=== PATIENT | female | born 1940 | race Caucasian/White ===

== ENCOUNTER 2016-11-03 14:08 | Inpatient (IN) | payer OTHER ==
[~2016-11-03] VITALS: Ht 160 cm; Wt 81.6 kg
[2016-11-03 14:11] VITALS: BP 110/70
[2016-11-03] MEDS ORDERED: DEXT 5% / NACL 0.9% 500 ML IV ONE (14:30)
[2016-11-03 14:54] LABS: BASOPHILS # (AUTO) 0.1 K/uL (0.00-0.22); BASOPHILS % (AUTO) 1.1 % (0.0-2.0); EOSINOPHILS # (AUTO) 0.2 K/uL (0-0.4); EOSINOPHILS % (AUTO) 2.6 % (0.0-4.0); HEMATOCRIT 31.4 % (36-48); HEMOGLOBIN 10.2 g/dL (12.0-16.0); LYMPHOCYTES % (AUTO) 10.8 % (20.5-51.1); MEAN CORPUSCULAR HEMOGLOBIN 31 pg (27-31); MEAN CORPUSCULAR HGB CONC 33 g/dL (33-37); MEAN CORPUSCULAR VOLUME 95 fL (80-94); MONOCYTES # (AUTO) 0.4 K/uL (0.8-1.0); MONOCYTES % (AUTO) 3.8 % (1.7-9.3); NEUTROPHILS # (AUTO) 7.8 K/uL (1.8-7.7); NEUTROPHILS % (AUTO) 81.7 % (42.2-75.2); PLATELET COUNT (AUTO) 302 K/uL (140-450); RED CELL DISTRIBUTION WIDTH 13.7 % (11.6-13.7); WHITE BLOOD COUNT (AUTO) 9.5 K/uL (4.8-10.8)
[2016-11-03 15:10] LABS: ALANINE AMINOTRANSFERASE 16 U/L (14-59); ALBUMIN 3.3 g/dL (3.4-5.0); ALKALINE PHOSPHATASE 80 U/L (46-116); ANION GAP 15.9 (8-16); ASPARTATE AMINOTRANSFERASE 26 U/L (15-37); CALCIUM 8.2 mg/dL (8.5-10.1); CARBON DIOXIDE 20.2 mmol/L (21-32); CHLORIDE 103 mmol/L (98-107); CREATINE KINASE, TOTAL 321 U/L (26-192); CREATININE 1.2 mg/dL (0.6-1.3); GLUCOSE 56 mg/dL (74-106); POTASSIUM 5.1 mmol/L (3.5-5.1); SODIUM SERUM 134 mmol/L (136-145); TOTAL BILIRUBIN 0.3 mg/dL (0.0-1.0); UREA NITROGEN, BLOOD 19 mg/dL (7-18)
[2016-11-03 15:29] LABS: CKMB RELATIVE INDEX 0.8 (0.0-2.5); CREATINE KINASE MB 2.5 ng/mL (0-3.6)
[2016-11-03] MEDS ORDERED: DEXTROSE 50% 50 ML SYR IVP ONE (15:45)
[2016-11-03] MEDS ORDERED: NACL 0.9% 1,000 ML IV SCH (15:56)
[2016-11-03] MEDS ORDERED: ACETAMINOPHEN 325 MG TAB PO PRN (16:00)
[2016-11-03] MEDS ORDERED: ONDANSETRON 4 MG/2 ML VIAL IM/IVP PRN (16:00)
[2016-11-03] MEDS ORDERED: HYDROcodone/APAP 7.5/325 MG 1 TAB PO PRN (16:00)
[2016-11-03] MEDS ORDERED: DOCUSATE SODIUM 100 MG GELCAP PO PRN (16:00)
[2016-11-03] MEDS ORDERED: MECLIZINE 25 MG TAB PO PRN (16:05)
[2016-11-03] MEDS ORDERED: METF1000 PO (16:39)
[2016-11-03] MEDS ORDERED: PRAV40TA1 PO (16:39)
[2016-11-03] MEDS ORDERED: VENL37.55 PO (16:39)
[2016-11-03] MEDS ORDERED: [UNRECOGNIZED DRUG - CODE] PO (16:39)
[2016-11-03] MEDS ORDERED: MIC5 PO (16:39)
[2016-11-03] MEDS ORDERED: OMEP20TC10 PO (16:39)
[2016-11-03] MEDS ORDERED: INSU100S22 SUBQ (16:39)
[2016-11-03 16:57] LABS: INR 1.1 (0.8-1.2); PARTIAL THROMBOPLASTIN TIME 28.5 secs (22-35.6); PROTHROMBIN TIME 10.8 secs (10.8-13.4)
[2016-11-03] MEDS ORDERED: NITROGLYCERIN 0.4 MG TAB SL PRN (17:10)
[2016-11-03 17:13] LABS: CHOL/HDL RATIO 1.5 (1-4.5); FREE T4 (FREE THYROXINE) 0.68 ng/dL (0.76-1.46); MAGNESIUM 1.3 mg/dL (1.8-2.4); PHOSPHORUS 3.3 mg/dL (2.5-4.9); THYROID STIMULATING HORMONE 1.59 uIU/mL (0.34-3.74)
[2016-11-03 18:02] VITALS: BP 151/76
[2016-11-03] MEDS ORDERED: DEXTROSE 50% 50 ML SYR IVP PRN (18:15)
[2016-11-03] MEDS ORDERED: MAG SULF 2000 MG/WATER PREMIX 50 ML IV ONE (18:15)
[2016-11-03 19:07] LABS: APPEARANCE,URINE CLEAR (CLEAR); BILIRUBIN,URINE NEGATIVE (NEGATIVE); BLOOD, URINE TRACE-L (NEGATIVE); COLOR,URINE YELLOW (YELLOW); LEUKOCYTE ESTERASE ,URINE NEGATIVE (NEGATIVE); NITRITE, URINE NEGATIVE (NEGATIVE); PH,URINE 5.5 (5.0-9.0); PROTEIN,URINE NEGATIVE (NEGATIVE); UGLUCOSE TRACE (NEGATIVE); UROBILINOGEN,URINE 0.2 EU/dL (0.2 - 1)
[2016-11-03 19:10] LABS: BACTERIA,URINE RARE /HPF (None Seen); RBC,URINE 0-3 /HPF (0-5); SQUAMOUS EPITHELIAL CELL,UR 0-3 /LPF (0-3 (FEW)); WBC,URINE 0-3 /HPF (0-5)
[2016-11-03 20:00] VITALS: BP 144/84
[2016-11-03] MEDS: ASPIRIN 81 MG TAB.CHEW PO SCH (20:18)
[2016-11-03] MEDS: ATORVASTATIN 20 MG TAB PO SCH (20:18)
[2016-11-03] MEDS: BLOOD GLUCOSE MONITORING 1 DEV DEV FS SCH (20:19)
[2016-11-03] MEDS: MORPHINE SULFATE 2 MG/ML SYR IVP PRN ×2 (20:19→23:33)
[2016-11-03] MEDS ORDERED: ASPIRIN 81 MG TAB.CHEW ONE (20:24)
[2016-11-03] MEDS ORDERED: INSULIN DETEMIR 100 UNITS/ML 10 ML VIAL SUBQ SCH (21:00)
[2016-11-03] MEDS ORDERED: ATORVASTATIN 20 MG TAB PO SCH (21:00)
[2016-11-04] VITALS: BP 136/79
[2016-11-04] MEDS ORDERED: ZOLPIDEM 5 MG TAB PO SCH ×2 (02:55→21:00)
[2016-11-04 04:00] VITALS: BP 123/87
[2016-11-04 06:05] LABS: BASOPHILS # (AUTO) 0.1 K/uL (0.00-0.22); BASOPHILS % (AUTO) 1.4 % (0.0-2.0); EOSINOPHILS # (AUTO) 0.1 K/uL (0-0.4); EOSINOPHILS % (AUTO) 1.6 % (0.0-4.0); HEMATOCRIT 32.8 % (36-48); HEMOGLOBIN 10.9 g/dL (12.0-16.0); LYMPHOCYTES # (AUTO) 2.3 K/uL (2.5-16.5); LYMPHOCYTES % (AUTO) 25.1 % (20.5-51.1); MEAN CORPUSCULAR HEMOGLOBIN 32 pg (27-31); MEAN CORPUSCULAR HGB CONC 33 g/dL (33-37); MEAN CORPUSCULAR VOLUME 96 fL (80-94); MONOCYTES # (AUTO) 0.5 K/uL (0.8-1.0); MONOCYTES % (AUTO) 5.8 % (1.7-9.3); NEUTROPHILS % (AUTO) 66.1 % (42.2-75.2); PLATELET COUNT (AUTO) 346 K/uL (140-450); RED BLOOD CELL COUNT(AUTO) 3.43 MIL/uL (4.20-5.40); RED CELL DISTRIBUTION WIDTH 13.2 % (11.6-13.7)
[2016-11-04 06:25] LABS: ANION GAP 11.7 (8-16); CALCIUM 8.5 mg/dL (8.5-10.1); CARBON DIOXIDE 23.8 mmol/L (21-32); CHLORIDE 103 mmol/L (98-107); CREATININE 0.9 mg/dL (0.6-1.3); GLUCOSE 98 mg/dL (74-106); POTASSIUM 4.5 mmol/L (3.5-5.1); SODIUM SERUM 134 mmol/L (136-145); UREA NITROGEN, BLOOD 9 mg/dL (7-18)
[2016-11-04] MEDS: BLOOD GLUCOSE MONITORING 1 DEV DEV FS SCH ×4 (06:33→20:33)
[2016-11-04 06:34] LABS: MAGNESIUM 1.8 mg/dL (1.8-2.4)
[2016-11-04 08:00] VITALS: BP 143/70
[2016-11-04] MEDS ORDERED: glyBURIDE 5 MG TAB PO SCH (09:00)
[2016-11-04] MEDS ORDERED: LOSARTAN 50 MG TAB PO SCH (09:00)
[2016-11-04] MEDS: DEXT 5% /NACL 0.9% 1,000 ML IV SCH ×2 (09:00→16:25)
[2016-11-04] MEDS: metFORMIN 500 MG TAB PO SCH (09:13)
[2016-11-04] MEDS: METOPROLOL SUCCINATE 50 MG TABER PO SCH (09:13)
[2016-11-04] MEDS: ASPIRIN 81 MG TAB.CHEW PO SCH (09:14)
[2016-11-04] MEDS: amLODIPine 5 MG TAB PO SCH (09:14)
[2016-11-04] MEDS: LOSARTAN 50 MG TAB PO SCH (09:14)
[2016-11-04] MEDS: PANTOPRAZOLE 40 MG TABEC PO SCH (09:14)
[2016-11-04] MEDS ORDERED: VENL37.55 PO (09:46)
[2016-11-04] MEDS ORDERED: DEXTROSE 50% 50 ML SYR IVP PRN (10:40)
[2016-11-04 12:00] VITALS: BP 139/65
[2016-11-04 16:00] VITALS: BP 133/71
[2016-11-04] MEDS: INSULIN LISPRO SLIDING SCALE 100 UNITS/ML VIAL SUBQ PRN (17:18)
[2016-11-04 20:00] VITALS: BP 139/63
[2016-11-04] MEDS: ATORVASTATIN 20 MG TAB PO SCH (20:32)
[2016-11-04] MEDS: MORPHINE SULFATE 2 MG/ML SYR IVP PRN (20:33)
[2016-11-04] MEDS: NYSTATIN/TRIAMCINOLONE CRM 15 GM TUBE TP SCH (20:34)
[2016-11-04] MEDS ORDERED: LORazepam 2 MG/ML VIAL IM/IVP PRN (22:35)
[2016-11-05] VITALS: BP 137/77
[2016-11-05] MEDS ORDERED: HALOPERIDOL IM 5 MG/ML VIAL IM SCH (01:50)
[2016-11-05] MEDS: DEXT 5% /NACL 0.9% 1,000 ML IV SCH (02:25)
[2016-11-05 04:00] VITALS: BP 123/65
[2016-11-05 06:40] LABS: T4 (THYROXINE) 4.3 ug/dL (4.5-12.0)
[2016-11-05] MEDS: BLOOD GLUCOSE MONITORING 1 DEV DEV FS SCH ×4 (06:43→21:20)
[2016-11-05] MEDS: INSULIN LISPRO SLIDING SCALE 100 UNITS/ML VIAL SUBQ PRN ×2 (06:45→18:47)
[2016-11-05 07:35] LABS: BASOPHILS # (AUTO) 0.1 K/uL (0.00-0.22); BASOPHILS % (AUTO) 1.2 % (0.0-2.0); EOSINOPHILS # (AUTO) 0.2 K/uL (0-0.4); EOSINOPHILS % (AUTO) 1.7 % (0.0-4.0); HEMATOCRIT 32.3 % (36-48); HEMOGLOBIN 10.7 g/dL (12.0-16.0); LYMPHOCYTES # (AUTO) 1.4 K/uL (2.5-16.5); LYMPHOCYTES % (AUTO) 12.2 % (20.5-51.1); MEAN CORPUSCULAR HEMOGLOBIN 32 pg (27-31); MEAN CORPUSCULAR HGB CONC 33 g/dL (33-37); MEAN CORPUSCULAR VOLUME 95 fL (80-94); MONOCYTES # (AUTO) 0.6 K/uL (0.8-1.0); MONOCYTES % (AUTO) 4.9 % (1.7-9.3); NEUTROPHILS # (AUTO) 9.4 K/uL (1.8-7.7); PLATELET COUNT (AUTO) 320 K/uL (140-450); RED BLOOD CELL COUNT(AUTO) 3.39 MIL/uL (4.20-5.40); RED CELL DISTRIBUTION WIDTH 13.8 % (11.6-13.7); WHITE BLOOD COUNT (AUTO) 11.7 K/uL (4.8-10.8)
[2016-11-05 07:49] LABS: CALCIUM 8.5 mg/dL (8.5-10.1); CARBON DIOXIDE 22.8 mmol/L (21-32); CHLORIDE 102 mmol/L (98-107); GLUCOSE 240 mg/dL (74-106); POTASSIUM 4.8 mmol/L (3.5-5.1); SODIUM SERUM 134 mmol/L (136-145); UREA NITROGEN, BLOOD 10 mg/dL (7-18)
[2016-11-05 08:00] VITALS: BP 133/76
[2016-11-05] MEDS: PANTOPRAZOLE 40 MG TABEC PO SCH (08:13)
[2016-11-05] MEDS: metFORMIN 500 MG TAB PO SCH (08:13)
[2016-11-05] MEDS: METOPROLOL SUCCINATE 50 MG TABER PO SCH (08:14)
[2016-11-05] MEDS: LOSARTAN 50 MG TAB PO SCH (08:14)
[2016-11-05] MEDS: amLODIPine 5 MG TAB PO SCH (08:14)
[2016-11-05] MEDS: ASPIRIN 81 MG TAB.CHEW PO SCH (08:14)
[2016-11-05] MEDS ORDERED: VENL37.55 PO (08:20)
[2016-11-05] MEDS: NYSTATIN/TRIAMCINOLONE CRM 15 GM TUBE TP SCH ×2 (09:00→21:25)
[2016-11-05] MEDS ORDERED: TEMAZEPAM 15 MG CAP PO PRN (09:20)
[2016-11-05 09:45] LABS: HEMOGLOBIN A1C 6.8 % (4.8-5.6)
[2016-11-05] MEDS ORDERED: VENLAFAXINE 37.5 MG TAB PO SCH (10:00)
[2016-11-05 12:00] VITALS: BP 142/65
[2016-11-05 13:09] LABS: FOLIC ACID 5.4 ng/mL (>3.0)
[2016-11-05 16:00] VITALS: BP 131/61
[2016-11-05] MEDS ORDERED: QUET200T PO (17:50)
[2016-11-05 20:00] VITALS: BP 134/77
[2016-11-05] MEDS ORDERED: QUEtiapine FUMARATE 100 MG TAB PO SCH (21:00)
[2016-11-05] MEDS: ATORVASTATIN 20 MG TAB PO SCH (21:23)
[2016-11-06] VITALS: BP 115/78
[2016-11-06 04:00] VITALS: BP 134/79
[2016-11-06 06:33] LABS: BASOPHILS # (AUTO) 0.2 K/uL (0.00-0.22); BASOPHILS % (AUTO) 1.6 % (0.0-2.0); EOSINOPHILS # (AUTO) 0.2 K/uL (0-0.4); EOSINOPHILS % (AUTO) 1.6 % (0.0-4.0); HEMATOCRIT 31.8 % (36-48); HEMOGLOBIN 10.5 g/dL (12.0-16.0); LYMPHOCYTES # (AUTO) 2.4 K/uL (2.5-16.5); LYMPHOCYTES % (AUTO) 21.6 % (20.5-51.1); MEAN CORPUSCULAR HEMOGLOBIN 31 pg (27-31); MEAN CORPUSCULAR HGB CONC 33 g/dL (33-37); MEAN CORPUSCULAR VOLUME 95 fL (80-94); MONOCYTES # (AUTO) 0.7 K/uL (0.8-1.0); MONOCYTES % (AUTO) 6.4 % (1.7-9.3); NEUTROPHILS # (AUTO) 7.4 K/uL (1.8-7.7); NEUTROPHILS % (AUTO) 68.8 % (42.2-75.2); PLATELET COUNT (AUTO) 308 K/uL (140-450); RED BLOOD CELL COUNT(AUTO) 3.35 MIL/uL (4.20-5.40); RED CELL DISTRIBUTION WIDTH 13.6 % (11.6-13.7); WHITE BLOOD COUNT (AUTO) 10.9 K/uL (4.8-10.8)
[2016-11-06] MEDS ORDERED: QUET400T PO (06:36)
[2016-11-06] MEDS: BLOOD GLUCOSE MONITORING 1 DEV DEV FS SCH ×2 (06:40→12:04)
[2016-11-06 06:50] LABS: CALCIUM 8.7 mg/dL (8.5-10.1); CARBON DIOXIDE 23.5 mmol/L (21-32); CHLORIDE 102 mmol/L (98-107); GLUCOSE 186 mg/dL (74-106); POTASSIUM 4.5 mmol/L (3.5-5.1); SODIUM SERUM 135 mmol/L (136-145); UREA NITROGEN, BLOOD 10 mg/dL (7-18)
[2016-11-06] MEDS: INSULIN LISPRO SLIDING SCALE 100 UNITS/ML VIAL SUBQ PRN (06:51)
[2016-11-06 08:00] VITALS: BP 157/75
[2016-11-06] MEDS: PANTOPRAZOLE 40 MG TABEC PO SCH (08:21)
[2016-11-06] MEDS: LOSARTAN 50 MG TAB PO SCH (08:21)
[2016-11-06] MEDS: metFORMIN 500 MG TAB PO SCH (08:22)
[2016-11-06] MEDS: amLODIPine 5 MG TAB PO SCH (08:22)
[2016-11-06] MEDS: METOPROLOL SUCCINATE 50 MG TABER PO SCH (08:22)
[2016-11-06] MEDS: ASPIRIN 81 MG TAB.CHEW PO SCH (08:22)
[2016-11-06] MEDS: NYSTATIN/TRIAMCINOLONE CRM 15 GM TUBE TP SCH (08:23)
[2016-11-06] MEDS ORDERED: VENLAFAXINE 37.5 MG TAB PO SCH (09:00)
[2016-11-06] MEDS ORDERED: PIOGLITAZONE 30 MG TAB PO SCH (09:00)
[2016-11-06 12:00] VITALS: BP 145/82
[2016-11-06] MEDS ORDERED: QUEtiapine FUMARATE 100 MG TAB PO SCH (21:00)
== END 2016-11-06 13:00 | disposition home health service (06) | DRG 637 ==
LOC: MED 14:08 → MTU 16:00
PROVIDERS: ADMIT Family Medicine; ATTEND Hospitalist
DX: E11.649 Type 2 diabetes mellitus with hypoglycemia without coma (principal); G93.41 Metabolic encephalopathy; D68.59 Other primary thrombophilia; E87.1 Hypo-osmolality and hyponatremia; E44.0 Moderate protein-calorie malnutrition; F33.9 Major depressive disorder, recurrent, unspecified; R55 Syncope and collapse; G90.9 Disorder of the autonomic nervous system, unspecified; I44.1 Atrioventricular block, second degree; W18.30XA Fall on same level, unspecified, initial encounter; E11.65 Type 2 diabetes mellitus with hyperglycemia; I10 Essential (primary) hypertension; F17.210 Nicotine dependence, cigarettes, uncomplicated; F03.90 Unspecified dementia, unspecified severity, without behavioral disturbance, psychotic disturbance, mood disturbance, and anxiety; D53.9 Nutritional anemia, unspecified; E66.9 Obesity, unspecified; S00.81XA Abrasion of other part of head, initial encounter; I25.10 Atherosclerotic heart disease of native coronary artery without angina pectoris; E83.42 Hypomagnesemia; Z88.6 Allergy status to analgesic agent; Z79.84 Long term (current) use of oral hypoglycemic drugs; Z79.4 Long term (current) use of insulin; Z79.899 Other long term (current) drug therapy; Z68.31 Body mass index [BMI] 31.0-31.9, adult; Y93.89 Activity, other specified; Y92.89 Other specified places as the place of occurrence of the external cause; Z91.14 Patient's other noncompliance with medication regimen; Y99.8 Other external cause status
CPT/HCPCS: 36415; 70450; 71010; 73080; 80048; 80053; 81001; 82140; 82150; 82550; 82553; 82607; 82728; 82746; 82948; 83036; 83540; 83690; 83735; 83880; 84100; 84436; 84439; 84443; 84479; 84484; 85025; 85045; 85610; 85730; 87081; 93005; 93880; 93925; 93970; 96374; 97110; 97116; 97140; 97530; 99285; C1758; J1630; J1815; J2060; J2270; J3475; J7030; J7042; Q0092